=== PATIENT | female | born 1995 | race African-American/Black ===

== ENCOUNTER 2017-07-18 17:35 | Emergency (ER) | payer SELFPAY ==
[~2017-07-18] VITALS: Ht 175.3 cm; Wt 58.4 kg
[2017-07-18] MEDS ORDERED: ACETAMINOPHEN 325MG TABLET PO ONE (19:30)
[2017-07-18 21:00] VITALS: BP 113/82
== END 2017-07-18 21:00 | disposition home or self-care (01) ==
LOC: ER 18:21
DX: J06.9 Acute upper respiratory infection, unspecified (principal); J02.9 Acute pharyngitis, unspecified; F17.210 Nicotine dependence, cigarettes, uncomplicated; Z98.890 Other specified postprocedural states
CPT/HCPCS: 87070; 87430; 99284; Z7610

== ENCOUNTER 2020-09-10 13:31 | Emergency (ER) | payer MEDICAID ==
[~2020-09-10] VITALS: Ht 175.3 cm; Wt 57.0 kg
[2020-09-10 15:51] LABS: CLARITY URINE CLOUDY (CLEAR); COLOR URINE DARK YELLOW (YELLOW); KETONES URINE 4+ (NEGATIVE); LEUKOCYTE ESTERASE URINE 1+ (NEGATIVE); NITRITE URINE NEGATIVE (NEGATIVE); OCCULT BLOOD URINE 1+ (NEGATIVE); PROTEIN URINE 1+ (NEGATIVE); SPECIFIC GRAVITY URINE 1.034 (1.005-1.030)
[2020-09-10 16:13] LABS: BASOPHILS % 0.3 % (0.0-2.0); EOSINOPHILS % 0.2 % (0.0-5.0); HEMATOCRIT. 38.5 % (36.0-48.0); HEMOGLOBIN. 13.2 g/dL (12.0-16.0); LYMPHOCYTES % 17.7 % (20.0-50.0); MEAN CORPUSCULAR HEMOGLOBIN 31.9 pg (28.0-32.0); MEAN CORPUSCULAR VOLUME 92.9 fL (81.0-99.0); MONOCYTES % 6.8 % (2.0-8.0); PLATELET 170 x1000/uL (130-400); RED BLOOD CELL COUNT 4.14 mill/uL (4.2-5.4); RED CELL DISTRIBUTION WIDTH 12.3 % (11.6-14.6)
[2020-09-10 16:19] LABS: CHLORIDE 103 mEq/L (98-107)
[2020-09-10 16:23] LABS: HCG SCREEN POSITIVE
[2020-09-10] MEDS ORDERED: ACETAMINOPHEN 325MG TABLET PO NR (17:00)
[2020-09-10] MEDS ORDERED: SODIUM CHLORIDE 0.9% 1,000 ML IV NR (17:00)
[2020-09-10] MEDS ORDERED: ONDANSETRON HCL 4MG/2ML INJ IM NR (17:00)
[2020-09-10 17:21] LABS: INR 1.1; PROTHROMBIN TIME 11.8 sec (9.6-11.0)
[2020-09-10] MEDS ORDERED: METOCLOPRAMIDE HCL 10MG/2ML VIAL IV ONE (17:45)
[2020-09-10 18:29] LABS: B-HCG QUANTITATIVE 81046 mIU/mL (<3)
[2020-09-10] MEDS ORDERED: CEPHALEXIN 250MG CAPSULE PO ONE (20:45)
[2020-09-10 21:51] VITALS: BP 127/79
== END 2020-09-10 21:55 | disposition home or self-care (01) ==
LOC: ER 13:31
DX: O20.0 Threatened abortion (principal); O23.41 Unspecified infection of urinary tract in pregnancy, first trimester; O26.891 Other specified pregnancy related conditions, first trimester; R19.7 Diarrhea, unspecified; Z3A.01 Less than 8 weeks gestation of pregnancy
CPT/HCPCS: 36415; 76830; 76856; 80048; 80076; 81003; 81025; 83690; 84702; 84703; 85025; 85610; 86900; 86901; 93005; 96361; 96374; 99285; J2765

== ENCOUNTER 2024-03-13 01:17 | Emergency (ER) | payer MEDICAID ==
[~2024-03-13] VITALS: Ht 175.3 cm; Wt 63.0 kg
[2024-03-13 01:24] VITALS: BP 117/58; PULSE 78; RESP 18; TEMP 98.1; O2SAT 98
[2024-03-13] MEDS ORDERED: AMOX1TAB16 MT (01:28)
[2024-03-13] MEDS ORDERED: BO1 TP (01:28)
== END 2024-03-13 01:43 | disposition home or self-care (01) ==
LOC: ER 01:26
DX: S60.410A Abrasion of right index finger, initial encounter (principal); F12.10 Cannabis abuse, uncomplicated; Z98.890 Other specified postprocedural states; W50.3XXA Accidental bite by another person, initial encounter; Y93.89 Activity, other specified; Y92.89 Other specified places as the place of occurrence of the external cause; Y99.8 Other external cause status
CPT/HCPCS: 99283

== ENCOUNTER 2025-09-08 16:06 | Emergency (ER) | payer SELFPAY ==
[~2025-09-08] VITALS: Ht 180.3 cm; Wt 61.0 kg
[~2025-09-08 16:06] MED LIST: AMOX1TAB16 MT; BO1 TP
[2025-09-08 16:20] VITALS: O2SAT 100
[2025-09-08] MEDS ORDERED: METOCLOPRAMIDE HCL 5MG TABLET PO ONE (18:45)
[2025-09-08 19:35] LABS: BASOPHILS % 0.3 % (0.0-2.0); EOSINOPHILS % 0.3 % (0.0-5.0); HEMATOCRIT. 36.0 % (36.0-48.0); HEMOGLOBIN. 12.1 g/dL (12.0-16.0); LYMPHOCYTES % 24.3 % (20.0-50.0); MEAN PLATELET VOLUME 8.3 fl (7.4-10.4); MONOCYTES % 8.7 % (2.0-8.0); NEUTROPHILS % 66.4 % (40.0-76.0); PLATELET 146 x1000/uL (130-400); RED BLOOD CELL COUNT 3.80 mill/uL (4.2-5.4); RED CELL DISTRIBUTION WIDTH 12.5 % (11.6-14.6)
[2025-09-08] MEDS: METOCLOPRAMIDE HCL 10MG TABLET PO SCH (19:44)
[2025-09-08 19:56] LABS: CREATININE 0.6 mg/dL (0.6-1.0)
[2025-09-08 19:57] LABS: PROTEIN TOTAL 7.5 g/dL (6.0-8.3); UREA NITROGEN BLOOD 5 mg/dL (9-23)
[2025-09-08 19:58] LABS: ASPARTATE AMINOTRANSFERASE 18 IU/L (<34); BILIRUBIN DIRECT 0.4 mg/dL (<=3.0)
[2025-09-08 19:59] LABS: BILIRUBIN TOTAL 1.3 mg/dL (0.1-1.0)
[2025-09-08 20:15] LABS: CLARITY URINE CLOUDY (CLEAR); COLOR URINE DARK YELLOW (YELLOW); GLUCOSE URINE NEGATIVE (NEGATIVE); KETONES URINE TRACE (NEGATIVE); LEUKOCYTE ESTERASE URINE 2+ (NEGATIVE); NITRITE URINE POSITIVE (NEGATIVE); OCCULT BLOOD URINE NEGATIVE (NEGATIVE); PH URINE 6.5 (4.5-8.0); PROTEIN URINE 1+ (NEGATIVE); SPECIFIC GRAVITY URINE 1.031 (1.005-1.030); UROBILINOGEN URINE 2.0 E.U./dL (0.2-1.0)
[2025-09-08 20:23] LABS: HCG SCREEN POSITIVE
[2025-09-08] MEDS: SODIUM CHLORIDE 0.9% 1,000 ML IV ONE (20:29)
[2025-09-08 20:47] LABS: BACTERIA URINE 3+; RBC URINE 0-2 /hpf (0-2); SQUAMOUS EPITHELIAL CELL URINE 1+ /lpf (RARE/1+)
[2025-09-08] MEDS ORDERED: CEPH500C2 MT (21:20)
[2025-09-08] MEDS ORDERED: METO5TAB86 MT (21:21)
[2025-09-08 22:01] VITALS: BP 115/66; PULSE 70; RESP 20; TEMP 37; O2SAT 98
== END 2025-09-08 22:06 | disposition home or self-care (01) ==
LOC: ER 16:06
DX: O23.41 Unspecified infection of urinary tract in pregnancy, first trimester (principal); O99.611 Diseases of the digestive system complicating pregnancy, first trimester; R10.20 Pelvic and perineal pain unspecified side; Z3A.08 8 weeks gestation of pregnancy
CPT/HCPCS: 80076; 80048; 81003; 81025; 84703; 84702; 83690; 85025; 86850; 86900; 86901; 36415; 76801; 96360; 99284; J8597; J7030; Z7610